=== PATIENT | female | born 1970 | race Caucasian/White ===

== ENCOUNTER → 2016-12-16 | Outpatient (CLI) | payer BC, OTHER ==
[~2016-12-16] MED LIST: ACHD5005 PO; AMLO5TAB2 PO; CLAR500T3 PO; CYCL10TA45 GT; DCS100C PO; FERR-57 PO; FURO80TA PO; HYDR-34 PO; IBP800T PO; LOSA100T7 PO; LVT.1T PO; NAPR-243 PO; NFNEB10T PO; POTA20TA7 PO; TRIA1TAB5 PO; TRM50T PO
--- NOTE | 2016-12-16 19:11 | Diagnostic Imaging Report ---
INDICATION: Renal insufficiency. Bilateral renal sonography performed in the routine fashion. FINDINGS: The right kidney measured 10.2 x 5.4 x 5.0 cm. The left measured 9.4 x 5.1 x 4.5 cm. Bladder could not be evaluated since it is nearly empty. IMPRESSION: Unremarkable bilateral renal sonography. Dictated by: Dictated on workstation # [id number]
== END ==
LOC: RAD 15:52
PROVIDERS: ATTEND Family Medicine
DX: N28.9 Disorder of kidney and ureter, unspecified (principal)
CPT/HCPCS: 76770

== ENCOUNTER → 2017-02-04 | Outpatient (CLI) | payer BC ==
--- NOTE | 2017-02-04 16:05 | Diagnostic Imaging Report ---
INDICATION: Low back pain. COMPARISON: None. FINDINGS: Three views of the lumbar spine are obtained. There is moderate dextroscoliosis of the lumbar spine. Alignment otherwise appears unremarkable. Vertebral body heights appear maintained without evidence of fracture or osseous destructive process. The pedicles appear intact. There is fairly severe degenerative disc disease and moderate lumbar spondylosis in the lower thoracic spine as well as T12/L1, L1/L2 and L2/L3. There are more moderate but similar changes at L4/L5 and L5/S1. There is relative sparing of the disc space at L4/L5. The sacroiliac joints appear unremarkable. IMPRESSION: Dextroscoliosis of lumbar spine with diffuse degenerative disc disease and lumbar spondylosis as described. Findings are most severe at the apex of the scoliosis. No acute fracture or osseous destructive process is suspected. Dictated by: Dictated on workstation # [id number]
== END ==
LOC: RAD 14:57
PROVIDERS: ATTEND Family Medicine
DX: M41.26 Other idiopathic scoliosis, lumbar region (principal); M51.36 Other intervertebral disc degeneration, lumbar region
CPT/HCPCS: 72100

== ENCOUNTER → 2018-11-22 | Outpatient (CLI) | payer BC ==
--- NOTE | 2018-11-22 19:35 | Diagnostic Imaging Report ---
INDICATION: Routine screening. COMPARISON: Prior mammogram from 08/02/2012. EXAMINATION: 2D and 3D bilateral screening mammography was performed with CAD. The current study was also evaluated with a Computer Aided Detection (CAD) system. FINDINGS: Scattered fibroglandular densities are identified, bilaterally. There is an elongated tubular density in the lateral portion of the left breast mid depth on the CC view. No corresponding density on the MLO view is identified. Additional views are recommended. The right breast is unremarkable. Axillae are unremarkable. There are benign calcifications present. IMPRESSION: Left breast density. Additional views are recommended for further evaluation. ACR BI-RADS Category 0: Incomplete. (Needs additional imaging evaluation). Result letter will be mailed to the patient. Note: At least 10% of breast cancer is not imaged by mammography. Dictated by: Dictated on workstation # [id number]
== END ==
LOC: RAD 14:32
PROVIDERS: ATTEND Obstetrics & Gynecology
DX: Z12.31 Encounter for screening mammogram for malignant neoplasm of breast (principal)
CPT/HCPCS: 77067

== ENCOUNTER → 2018-11-30 | Outpatient (CLI) | payer BC ==
--- NOTE | 2018-11-30 22:51 | Diagnostic Imaging Report ---
INDICATION: Left breast density. Patient presents for additional views. Correlation is made with recent screening study from 11/22/2018. Unilateral left 2-D and 3-D diagnostic mammography was performed. Views included spot compression and rolled CC views and 90-degree lateral views. The current study was also evaluated with a Computer Aided Detection (CAD) system. 3-D tomosynthesis was also performed and reviewed. FINDINGS: Additional views show a persistent slightly elongated density in the lateral portion of the left breast. This again is not well seen on the lateral views, could represent fibroglandular tissue. No suspicious calcifications are seen. IMPRESSION: Persistent somewhat elongated density in the lateral left breast, best seen at mid depth on the CC view. This could represent fibroglandular tissue but if further evaluation with ultrasound is recommended, it will be performed today. ACR BI-RADS Category 0: Incomplete. (Needs additional imaging evaluation). Result letter will be mailed to the patient. Note: At least 10% of breast cancer is not imaged by mammography. Dictated by: Dictated on workstation # [id number]
--- NOTE | 2018-11-30 23:34 | Diagnostic Imaging Report ---
INDICATION: Left breast density. Correlation is made with diagnostic mammogram earlier same day. Interrogation the outer left breast was performed. At the 2:30 location approximately 8 cm from the nipple there is a somewhat elongated hypoechoic nodule measuring 11 mm x 4 mm x 6 mm. This likely accounts for the mammographic density. This is fairly well-circumscribed and has benign features. No internal vascularity is present. No other abnormalities are identified. IMPRESSION: Elongated hypoechoic nodule 2:30 location left breast 8 cm from the nipple, likely accounting for the mammographic density. This has fairly benign features. Even so, followup left mammogram and left breast ultrasound in 6 months is recommended to show continued stability. ACR BI-RADS Category 3: Probably benign findings. Result letter will be mailed to the patient. Note: At least 10% of breast cancer is not imaged by mammography. Dictated by: Dictated on workstation # [id number]
== END ==
LOC: RAD 13:53
PROVIDERS: ATTEND Obstetrics & Gynecology
DX: N63.20 Unspecified lump in the left breast, unspecified quadrant (principal)
CPT/HCPCS: 76642

== ENCOUNTER → 2019-02-23 | Outpatient (CLI) | payer BC | LOC: CARD 13:39 | PROVIDERS: ATTEND Family Medicine | DX: I51.7 Cardiomegaly (principal); I10 Essential (primary) hypertension; R01.1 Cardiac murmur, unspecified | CPT/HCPCS: 93306 ==

== ENCOUNTER 2019-03-16 20:45 | Outpatient (CLI) | payer BC | END 2019-03-17 05:46 | disposition home or self-care (01) | LOC: SLEEP 20:45 | PROVIDERS: ATTEND Family Medicine | DX: G47.33 Obstructive sleep apnea (adult) (pediatric) (principal); G47.10 Hypersomnia, unspecified; I10 Essential (primary) hypertension; F41.8 Other specified anxiety disorders; E03.9 Hypothyroidism, unspecified | CPT/HCPCS: 95811 ==

== ENCOUNTER 2019-04-30 13:52 | Emergency (ER) | payer BC ==
[~2019-04-30] VITALS: Ht 154 cm; Wt 136.0 kg
--- NOTE | 2019-04-30 15:06 | ED Back Pain ---
General Chief Complaint: Back Problems Stated Complaint: UPPER BACK PAIN Nursing Triage Note: Pt ambulates to triage with c/o back pain between the shoulder blades x 5 days. Pt has Hx of sciatic pain and osteoathritis but states this pain is different and more severe. Pt reports taking a prescribed muscle relaxer without any relief. Pt denies any episode of severe strain on that area in the past week. Nursing Sepsis Screen: No Definite Risk (ABDOUL ESTEVES MEDICAL STUDENT) Source of Information: Patient Exam Limitations: No Limitations (CRISTINE LUQUE) History of Present Illness Initial Comments Ms. Emmanuel is a 49 year-old female presenting to the ED via private vehicle for upper back pain. HPI: Patient states that she has had upper back pain between her shoulder blades for the last 5 days. The pain occasionally radiates bilaterally up her neck, but otherwise stays between the shoulder blades. She rates the pain as 8/10 in severity at it's max, currently 6/10. She finds that moving her arms exacerbates the pain but otherwise can identify no alleviating or aggravating factors. She denies any changes to her daily routine, specifically any recent lifting, straining, etc. She has a history of sciatica, but has never experienced upper back pain like this before. PMH: Sciatica, Osteoarthritis, Hypertension, Hypothyroidism, Lymphedema (ABDOUL ESTEVES MEDICAL STUDENT) Associated Symptoms: muscle spasms (CRISTINE LUQUE) Allergies and Home Medications Allergies Coded Allergies: No Known Drug Allergies (Unverified , 03/12/11) Home Medications Amlodipine Besylate 5 Mg Tablet, 5 MG PO DAILY, (Reported) Furosemide 80 Mg Tablet, 80 MG PO DAILY, (Reported) Hydrocodone Bit/Acetaminophen 1 Ea Tablet, 1-2 EA PO Q 4 - 6 HR PRN PRN for P NEW PRESCRIPTION CALLED IN TO [facility] Prescribed by: TILA AGOSTO on 06/13/13 1206 Ibuprofen 800 Mg Tab, 800 MG PO TID, (Reported) Levothyroxine Sodium 100 Mcg Tab, 100 MCG PO DAILY, (Reported) Losartan Potassium 100 Mg Tablet, 100 MG PO DAILY, (Reported) Nebivolol Hcl 10 Mg Tablet, 10 MG PO DAILY, (Reported) Potassium Chloride 20 Meq Tab.prt.sr, 40 MEQ PO TID, (Reported) Patient Home Medication List Home Medication List Reviewed: Yes (CRISTINE LUQUE) Review of Systems Constitutional: no symptoms reported EENTM: no symptoms reported, throat pain Respiratory: no symptoms reported Cardiovascular: edema Gastrointestinal: no symptoms reported Genitourinary: no symptoms reported Musculoskeletal: back pain, muscle pain Skin: no symptoms reported Psychiatric/Neurological: Depressed (Currently taking Buproprion. States that she is often tearful but she considers this stable ) (ABDOUL ESTEVES MEDICAL STUDENT) Past Juyandv-Khlldr-Npafgi Hx Patient Social History Alcohol Use: Denies Use Recreational Drug Use: No Smoking Status: Never a Smoker 2nd Hand Smoke Exposure: No Recent Foreign Travel: No Contact w/Someone Who Travel: No Recent Infectious Disease Expo: No Recent Hopitalizations: No Physical Abuse: No Sexual Abuse: No Mistreated: No Fear: No (ABDOUL ESTEVES MEDICAL STUDENT) Immunizations Up To Date Tetanus Booster (TDap): Unknown (ABDOUL ESTEVES MEDICAL STUDENT) Seasonal Allergies Seasonal Allergies: No (ABDOUL ESTEVES MEDICAL STUDENT) Past Medical History Surgeries: Yes Section, Hysterectomy, Orthopedic, Tubal Ligation Respiratory: Yes Sleep Apnea Cardiac: Yes Hypertension Neurological: No 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 oz. [id number]; 57.00 BMI Method:Stated General Appearance: Mild Distress HEENT: Normal ENT Inspection, Pharynx Normal Neck: Normal Inspection Cardiovascular: Regular Rate, Rhythm, No JVD, No Murmur Respiratory: Lungs Clear, Normal Breath Sounds Back: Other (Muscle tenderness bilaterally near T5. No vertebral tenderness. Dorsocervical fat pad present) Extremity: Normal Capillary Refill, Swelling Neurologic/Psychiatric: Alert, Oriented x3, Other (Tearful on exam) Skin: Normal Color, Warm/Dry (ABDOUL ESTEVES MEDICAL STUDENT) Progress/Results/Core Measures Results/Orders My Orders Orders - CRISTINE LUQUE Ketorolac Injection (Toradol Injection) (04/30/19 15:15) Orphenadrine Injection (Norflex Injectio (04/30/19 15:15) (CRISTINE LUQUE) Medications Given in ED Current Medications Medications Dose Ordered Sig/Suraj Route Start Time Stop Time Status Last Admin Dose Admin Ketorolac Tromethamine 60 mg ONCE ONCE IM 04/30/19 15:15 04/30/19 15:16 DC 04/30/19 15:07 60 MG Orphenadrine Citrate 60 mg ONCE ONCE IM 04/30/19 15:15 04/30/19 15:16 DC 04/30/19 15:08 60 MG (CRISTINE LUQUE) Vital Signs/I&O 04/30/19 14:06 Temp 37.1 Pulse 75 Resp 20 B/P (MAP) 183/117 (139) Pulse Ox 98 O2 Delivery Room Air (CRISTINE LUQUE) Blood Pressure Mean: 139 Progress Progress Note : Time: 16:09 Progress Note Patient's pain has resolved after medication administration. She will follow-up with Dr. SAMUEL regarding her hypertension. She has an appointment this . She agrees with plan of care, plans for discharge, return precautions were given. (CRISTINE LUQUE) Departure Impression Primary Impression: BACK STRAIN Disposition: 01 HOME, SELF-CARE Condition: Stable/Unchanged Departure-Patient Inst. Decision time for Depature: 16:10 (CRISTINE LUQUE) Referrals: ANÍBAL SAMUEL DO (PCP/Family) Primary Care Physician Patient Instructions: Upper Back Pain (DC) Add. Discharge Instructions: Take medications as directed. Follow-up with your primary care provider within 1 week for recheck. Return back to the emergency room for worsening symptoms or concerns as needed. All discharge instructions reviewed with patient and/or family. Voiced understanding. Scripts Cyclobenzaprine HCl (Cyclobenzaprine HCl) 10 Mg Tablet 10 MG PO Q8H PRN for SPASMS, #15 TAB 0 Refills Prov: CRISTINE LUQUE 04/30/19 ABDOUL ESTEVES MEDICAL STUDENT Apr 30, 2019 15:06 CRISTINE LUQUE Apr 30, 2019 16:10
[2019-04-30] MEDS ORDERED: ORPHENADRINE 60 MG/2 ML (NORFLEX) AMP IM ONE (15:15)
[2019-04-30] MEDS ORDERED: KETOROLAC 60 MG/2 ML VIAL IM ONE (15:15)
[2019-04-30] MEDS ORDERED: CYCL10TA9 PO (16:10)
[2019-04-30 16:16] VITALS: BP 131/89
== END 2019-04-30 16:16 | disposition home or self-care (01) ==
LOC: EDUNIT# 13:52 → ER 13:53
DX: S39.012A Strain of muscle, fascia and tendon of lower back, initial encounter (principal); I10 Essential (primary) hypertension; E03.9 Hypothyroidism, unspecified; Z90.710 Acquired absence of both cervix and uterus; Z98.51 Tubal ligation status; X58.XXXA Exposure to other specified factors, initial encounter
CPT/HCPCS: 96372; 99284

== ENCOUNTER 2019-12-14 13:14 | Observation (INO) | payer BC ==
[2019-12-14] VITALS (10 sets, daily range): BP systolic 119–165; BP diastolic 61–93
[~2019-12-14] VITALS: Ht 154.9 cm; Wt 137.4 kg
[~2019-12-14 13:14] MED LIST changes: +CYCL10TA9 PO; +diphenhydrAMINE 50 MG/ML INJ (BENADRYL) ONE; +methylPREDNISolone 125 MG (Solu-MEDROL) VIAL ONE
--- NOTE | 2019-12-14 13:14 | NUR ---
Pt arrived to ER via private vehicle, in wheelchair et back to ED3. Pt states she feels like she is having an allergic reaction and is itching all over et her "tongue feels funny". Met in room by Job Haji APRN. Pt to bed. Pt A&O. SL placewd to Lt AC 1315 - Pt given 50mg benadryl IVP, 20 famotidine IVP, et 125mg solumedrol IVP. 1L LR hung 1318 - 0.3mL epi given IM to Lt deltoid 1320 - Pt began vomiting, 8mg zofran IVP given. Pt sitting up at bedside, becoming anxious. Dr. Jacobo to room. 1330 - 20G SL placed to Rt hand. 2nd bag LR given. Pt audibly wheezing, diaphoretic et mumbling 1331 - 0.3mL epi given to rt deltoid IM 1333 - albuerol neb given 1336 - racemic epi given 1342 - 2nd bag of LR started. Levo gtt started at 0.1mcg/kg/min started Job Haji APRN et Dr. Jacobo at bedside for the entirity of this note
[2019-12-14] MEDS ORDERED: FAMOTIDINE 20MG/2ML IV (PEPCID) ONE (13:16)
[2019-12-14] MEDS ORDERED: EPINEPHrine INJECTION 1 MG/ML AMP ONE (13:19)
[2019-12-14] MEDS ORDERED: ONDANSETRON 4 MG/2 ML (SDV) Z0FRAN ONE (13:19)
[2019-12-14] MEDS ORDERED: RT-ALBUTEROL SULF 2.5 MG/3 ML PRE-MIX VIAL ONE (13:28)
[2019-12-14] MEDS ORDERED: LACTATED RINGERS 1,000 ML IV ONE ×2 (13:30→13:45)
[2019-12-14] MEDS ORDERED: RT-epiNEPHrine (RACEMIC) 2.25% 0.5 ML VIAL ONE (13:34)
[2019-12-14] MEDS ORDERED: RT-SODIUM CHL INHALATION 3 ML VIAL ONE (13:34)
[2019-12-14] MEDS ORDERED: NOREPINEPHRINE 4 MG/250 ML 250 ML IV ONE (13:38)
[2019-12-14] MEDS: NOREPINEPHRINE 4 MG/250 ML 250 ML IV SCH ×2 (13:42→20:06)
[2019-12-14] MEDS ORDERED: EPINEPHrine INJECTION 1 MG/ML AMP IM ONE (14:00)
[2019-12-14] MEDS ORDERED: LACTATED RINGERS 1,000 ML IV SCH ×2 (14:00)
[2019-12-14] MEDS ORDERED: RT-ALBUTEROL SULF 2.5 MG/3 ML PRE-MIX VIAL INH ONE (14:00)
[2019-12-14] MEDS ORDERED: ONDANSETRON 4 MG/2 ML (SDV) Z0FRAN IVP ONE (14:00)
[2019-12-14] MEDS ORDERED: EPINEPHrine INJECTION 1 MG/ML AMP IM PRN ×2 (14:00→16:30)
[2019-12-14] MEDS ORDERED: NOREPINEPHRINE 4 MG/250 ML 250 ML IV SCH (14:00)
[2019-12-14] MEDS ORDERED: methylPREDNISolone 125 MG (Solu-MEDROL) VIAL IVP ONE (14:00)
[2019-12-14] MEDS ORDERED: RT-epiNEPHrine (RACEMIC) 2.25% 0.5 ML VIAL INH ONE (14:00)
[2019-12-14] MEDS ORDERED: FAMOTIDINE 20MG/2ML IV (PEPCID) IVP ONE (14:00)
--- NOTE | 2019-12-14 14:05 | ED General ---
General Chief Complaint: Allergic Reaction Stated Complaint: ALLERGIC REACTION Source of Information: Patient Exam Limitations: No Limitations History of Present Illness Date Seen by Provider: Dec 14, 2019 Time Seen by Provider: 14:01 Initial Comments To ER by private vehicle from home with reports of allergic reaction. This started about 15 minutes ago while she was sitting in a chair reading a book. She noticed some swelling to her tongue difficulty breathing and itching to her face and arms as well as hives. No history of this. No known allergies. She did take a leftover prednisone this morning thinking it might help for her knee pain that she's been having. She has had prednisone before without adverse reaction. Timing/Duration: 1/2 Hour Severity: Moderate Allergies and Home Medications Allergies Coded Allergies: No Known Drug Allergies (Unverified , 03/12/11) Home Medications Amlodipine Besylate 5 Mg Tablet, 5 MG PO DAILY, (Reported) Cyclobenzaprine HCl 10 Mg Tablet, 10 MG PO Q8H PRN for SPASMS Prescribed by: CRISTINE LUQUE on 04/30/19 1610 Furosemide 80 Mg Tablet, 80 MG PO DAILY, (Reported) Hydrocodone Bit/Acetaminophen 1 Ea Tablet, 1-2 EA PO Q 4 - 6 HR PRN PRN for P NEW PRESCRIPTION CALLED IN TO [facility] Prescribed by: TILA AGOSTO on 06/13/13 1206 Ibuprofen 800 Mg Tab, 800 MG PO TID, (Reported) Levothyroxine Sodium 100 Mcg Tab, 100 MCG PO DAILY, (Reported) Losartan Potassium 100 Mg Tablet, 100 MG PO DAILY, (Reported) Nebivolol Hcl 10 Mg Tablet, 10 MG PO DAILY, (Reported) Potassium Chloride 20 Meq Tab.prt.sr, 40 MEQ PO TID, (Reported) Patient Home Medication List Home Medication List Reviewed: Yes Review of Systems Review of Systems Constitutional: see HPI EENTM: see HPI Respiratory: no symptoms reported Cardiovascular: no symptoms reported Genitourinary: no symptoms reported Musculoskeletal: no symptoms reported Skin: see HPI Psychiatric/Neurological: No Symptoms Reported Hematologic/Lymphatic: No Symptoms Reported Past Zbdvdrq-Kbxuvs-Opwroc Hx Patient Social History 2nd Hand Smoke Exposure: No Recent Hopitalizations: No Immunizations Up To Date Tetanus Booster (TDap): Unknown Seasonal Allergies Seasonal Allergies: No Past Medical History Surgeries: Yes Section, Hysterectomy, Orthopedic, Tubal Ligation Respiratory: Yes Sleep Apnea Cardiac: Yes Hypertension Neurological: No Reproductive Disorders: 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 oz. [id number]; 57.00 BMI Method:Stated General Appearance: Moderate Distress Eyes: Bilateral Eye Normal Inspection, Bilateral Eye PERRL, Bilateral Eye EOMI Respiratory: No Accessory Muscle Use, No Respiratory Distress Cardiovascular: Regular Rate, Rhythm, Normal Peripheral Pulses Gastrointestinal: Normal Bowel Sounds, Non Tender, Soft Extremity: Normal Inspection Neurologic/Psychiatric: Alert Skin: Normal Color, Warm/Dry Progress/Results/Core Measures Suspected Sepsis SIRS Temperature: Pulse: Respiratory Rate: Blood Pressure / Mean: Results/Orders My Orders Orders - GERSON RABAGO APRN Cbc With Automated Diff (12/14/19 13:56) Comprehensive Metabolic Panel (12/14/19 13:56) Ed Iv/Invasive Line Start (12/14/19 13:56) Epinephrine 1 Mg Injection (Adrenalin I (12/14/19 14:00) Epinephrine 1 Mg Injection (Adrenalin I (12/14/19 14:00) Rt Epinephrine (Racemic Epinephrine 2.25 (12/14/19 14:00) Svn Small Volume Nebulizer (12/14/19 13:56) Famotidine Injection (Pepcid Injection) (12/14/19 14:00) Methylprednisolone Sod Succ (Solu-Medrol (12/14/19 14:00) Lactated Ringers (Lr 1000 Ml Iv Solution (12/14/19 14:00) Lactated Ringers (Lr 1000 Ml Iv Solution (12/14/19 14:00) Norepinephrine 4 Mg/250 Ml (Norepinephri (12/14/19 14:00) Ondansetron Injection (Zofran Injectio (12/14/19 14:00) Albuterol Pre-Mix Nebs (Rt) (Proventil (12/14/19 14:00) Svn Small Volume Nebulizer (12/14/19 13:56) Vital Signs/I&O 12/14/19 13:14 Temp 36.5 Pulse 111 Resp 30 B/P (MAP) 165/93 (117) Pulse Ox 92 O2 Delivery Room Air Capillary Refill : Departure Communication (Admissions) Time/Spoke to Admitting Phy: 14:[address] Parmar on-call for Dr. SAMUEL, we'll admit. 1402-on arrival her mentation was normal she did have warm dry skin with some erythema and swelling of her palms and face and neck. She had a little bit of tongue edema as well as some edema of her ears. She was given 20 mg of IV Pepcid, 50 mg of IV Benadryl and 120 mg of IV Solu-Medrol. About 5 minutes later, despite these interventions, she got worse with worsening dyspnea. Wheezing, stridor, she became diaphoretic and mentation slowed. Blood pressure was rechecked and found to be in the upper 60s and low 70s systolic on 3 consecutive readings. This was consistent with clinical exam. Capillary refill is delayed. She was given racemic epinephrine and albuterol. She was given intramuscular epinephrine 0.3 mg by me in each deltoid 5 minutes apart. Despite that blood pressure remained in the 70s, levophed was started at 0.1 mics per kilo per minute through a large antecubital vein in the left. She was given 2 L of lactated Ringer's. She had slow improvement of blood pressure up to a current pressure of 111/68 without tachycardia heart rate of 80, respiratory rate declined to 18 and oxygen 93% on 3 L. Impression Primary Impression: Anaphylactic shock Disposition: ADMITTED INPATIENT Condition: Improved Admissions Decision to Admit Reason: Admit from ER (General) Decision to Admit/Date: Dec 14, 2019 Time/Decision to Admit Time: 14:05 Departure-Patient Inst. Referrals: ANÍBAL SAMUEL DO (PCP/Family) Primary Care Physician Copy Copies To 1: ANÍBAL SAMUEL PETER J APRN Dec 14, 2019 14:05
--- NOTE | 2019-12-14 14:15 | NUR ---
Called pt contact, walter Baldwin updated on pt status et plan to stay admit ot ICU.
[2019-12-14] MEDS ORDERED: ONDANSETRON 4 MG/2 ML (SDV) Z0FRAN IV PRN (15:00)
[2019-12-14] MEDS ORDERED: RT-ALBUTEROL SULF 2.5 MG/3 ML PRE-MIX VIAL INH PRN (15:00)
[2019-12-14] MEDS ORDERED: CATHETER FLUSH 10 ML SYR IV PRN (15:15)
--- NOTE | 2019-12-14 15:15 | Diagnostic Imaging Report ---
INDICATION: Anaphylaxis, Hypoxia COMPARISON: 04/24/2013. EXAMINATION: Single frontal view of the chest. FINDINGS: Stable heart size and pulmonary vascularity. The lungs are well aerated and clear. No large pleural effusion or pneumothorax is seen. The visualized osseous structures show no acute abnormality. IMPRESSION: No acute cardiopulmonary process. Dictated by: Dictated on workstation # [id number]
[2019-12-14 15:56] LABS: BASOPHILS # (AUTO) 0.1 10^3/uL (0.0-0.1); BASOPHILS % (AUTO) 0 % (0-10); EOSINOPHILS % (AUTO) 0 % (0-10); HEMATOCRIT 50 % (35-52); HEMOGLOBIN 16.6 G/DL (11.5-16.0); LYMPHOCYTES # (AUTO) 1.4 X 10^3 (1.0-4.0); LYMPHOCYTES % (AUTO) 4 % (12-44); MEAN CORPUSCULAR HEMOGLOBIN 29 PG (25-34); MEAN CORPUSCULAR HGB CONC 33 G/DL (32-36); MEAN CORPUSCULAR VOLUME 88 FL (80-99); MEAN PLATELET VOLUME 9.8 FL (7.4-10.4); MONOCYTES # (AUTO) 1.3 X 10^3 (0.0-1.0); MONOCYTES % (AUTO) 4 % (0-12); NEUTROPHILS # (AUTO) 30.8 X 10^3 (1.8-7.8); NEUTROPHILS % (AUTO) 92 % (42-75); PLATELET COUNT 374 10^3/uL (130-400)
[2019-12-14] MEDS: LACTATED RINGERS 1,000 ML IV SCH ×2 (15:56→22:57)
[2019-12-14 15:57] LABS: WHITE BLOOD COUNT 33.6 10^3/uL (4.3-11.0)
[2019-12-14 16:01] LABS: ALBUMIN 3.2 GM/DL (3.2-4.5); POTASSIUM 3.1 MMOL/L (3.6-5.0)
[2019-12-14 16:02] LABS: CALCIUM 8.6 MG/DL (8.5-10.1)
[2019-12-14 16:04] LABS: TOTAL PROTEIN 6.6 GM/DL (6.4-8.2)
[2019-12-14 16:05] LABS: BILIRUBIN,TOTAL 0.5 MG/DL (0.1-1.0)
[2019-12-14 16:07] LABS: CREATININE SERUM 0.99 MG/DL (0.60-1.30)
[2019-12-14] MEDS: inSUlin ASPART (NovoLOG) 1 UNIT/0.01 ML (CHARGE PER UNIT) SC SCH ×3 (16:25→21:17)
[2019-12-14 16:45] LABS: BAND NEUTROPHILS 3 %; LYMPHOCYTES % (MANUAL) 6 %; MONOCYTES % (MANUAL) 2 %; NEUTROPHILS % (MANUAL) 89 %; RBC MORPH NORMAL
[2019-12-14] MEDS: diphenhydrAMINE 50 MG/ML INJ (BENADRYL) IV SCH ×2 (18:37→22:57)
--- NOTE | 2019-12-14 20:32 | History & Physical-Hospitalist ---
History of Present Illness HPI/Chief Complaint Pt is a 49yoCF with a PMH of HTN and hypothyroidism who presented to the ER due to throat swelling. She reported had some knee pain and took what she thought was a left over prednisone thinking it would help. Shortly after she noted that her tongue was swelling and she had difficulty breathing and developed hives and itching. In the ER she had significant ear and tongue swelling as well. She was given solumedrol, benadryl, pepcid and multiple doses of IM. Despite this her blood pressure dropped and she was started on levophed gtt. She started to respond to this. Anesthesia was called for intubation but by the time they arrived she was improving and intubation was not deemed necessary. Source: patient, RN/MD Date Seen 12/14/19 Time Seen by a Provider: 20:31 Attending Physician Erin Harrington MD PCP Aníbal Meyers DO Referring Physician Date of Admission Dec 14, 2019 at 14:19 Home Medications & Allergies Home Medications Reviewed patient Home Medication Reconciliation performed by pharmacy medication reconciliations weatherization technician and/or nursing. Patients Allergies have been reviewed. Allergies Allergies Coded Allergies No Known Drug Allergies (Peaqpstyst17/2/11) Past Gzrjxzd-Kvkibm-Zdcsrj Hx Past Med/Social Hx: Reviewed Nursing Past Med/Soc Hx Patient Social History Alcohol Use: Denies Use Recreational Drug Use: No Smoking Status: Never a Smoker 2nd Hand Smoke Exposure: No Recent Foreign Travel: No Contact w/other who traveled: No Recent Hopitalizations: No Recent Infectious Disease Expo: No Immunizations Up To Date Tetanus Booster (TDap): Unknown Pediatric: No Seasonal Allergies Seasonal Allergies: No Past Medical History Surgeries: Section, Hysterectomy, Orthopedic, Tubal Ligation Currently Using CPAP: No Currently Using BIPAP: No Cardiac: Hypertension Reproductive: No Hysterectomy, Tubal Ligation Musculoskeletal: Arthritis Endocrine: Hypothyroidsim History of Blood Disorders: No Family History Reviewed Nursing Family Hx No Pertinent Family Hx Review of Systems Constitutional: No fever EENTM: mouth swelling, throat swelling, other (ear and tongue swelling) Respiratory: see HPI, short of breath Cardiovascular: palpitations Genitourinary: no symptoms reported Musculoskeletal: joint pain (knee pain) Skin: see HPI, pruritus, rash Physical Exam Physical Exam Vital Signs Vital Signs - First Documented 12/14/19 12/14/19 13:14 15:29 Temp 36.5 Pulse 111 Resp 30 B/P (MAP) 165/93 (117) Pulse Ox 92 O2 Delivery Room Air FiO2 21 Capillary Refill : Less Than 3 Seconds Height, Weight, BMI Height: 5'3.00" Weight: 345lbs. oz. 156.381511ge; 55.00 BMI Method:Stated General Appearance: No Apparent Distress, Obese HEENT: PERRL/EOMI, Moist Mucous Membranes; No Scleral Icterus (L), No Scleral Icterus (R) Neck: Normal Inspection, Supple Respiratory: Lungs Clear, No Accessory Muscle Use, No Respiratory Distress Cardiovascular: Regular Rate, Rhythm, No Murmur Gastrointestinal: Normal Bowel Sounds, Non Tender, Soft Extremity: Normal Capillary Refill, Non Tender Neurologic/Psychiatric: Alert, Oriented x3, Normal Mood/Affect Skin: Normal Color, Warm/Dry Results Results/Procedures Labs Laboratory Tests 12/14/19 15:45 12/15/19 04:45 Patient resulted labs reviewed. Imaging: Reviewed Imaging Report Imaging [facility], [place], [place] NAME: [facility] REC#: [id number] PT STATUS: ADM Dom : 1970 PHYSICIAN: SHAQ TALAMANTES MD ADMIT DATE: 12/14/19/ICU Draft Date of Exam:12/14/19 CHEST 1 VIEW, AP/PA ONLY INDICATION: Anaphylaxis, Hypoxia COMPARISON: 04/24/2013. EXAMINATION: Single frontal view of the chest. FINDINGS: Stable heart size and pulmonary vascularity. The lungs are well aerated and clear. No large pleural effusion or pneumothorax is seen. The visualized osseous structures show no acute abnormality. IMPRESSION: No acute cardiopulmonary process. Dictated on workstation # [id number] Dict: 12/14/19 1513 Trans: 12/14/19 1515 [facility] [id number] Interpreted by: TAWNY CHOUDHARY MD Electronically signed by: Assessment/Plan Admission Diagnosis Anaphylactic shock Admission Status: Observation Assessment and Plan Anaphylactic Shock Continue steroids, benadryl, and pepcid Levophed on standby currently Workup ordered by eICU for etiology of anaphylaxis Discussed need for epi pen with patient, she is unsure if she can afford it- will look in to options for 340b coverage or coupons Leukocytosis Unsure of cause, maybe reactive Trend No evidence of infection Not sepsis HTN Hold home meds due to hypotension Hyperglycemia SSI added Does not have a known history of DM Anticipate worsening of blood sugars with steroids use DVT ppx: lovenox Diagnosis/Problems Diagnosis/Problems (1) Anaphylactic shock Status: Acute (2) Hypothyroidism Status: Chronic Qualifiers: Hypothyroidism type: unspecified Qualified Codes: E03.9 - Hypothyroidism, unspecified (3) Essential (primary) hypertension Status: Chronic (4) Leukocytosis Status: Acute Qualifiers: Leukocytosis type: unspecified Qualified Codes: D72.829 - Elevated white blood cell count, unspecified (5) Hyperglycemia Status: Acute (6) Depression Status: Chronic Qualifiers: Depression Type: unspecified Qualified Codes: F32.9 - Major depressive disorder, single episode, unspecified Clinical Quality Measures DVT/VTE Risk/Contraindication: Risk Factor Score Per Nursin RFS Level Per Nursing on Admit: 4+=Very High Copy Copies To 1: ANÍBAL MEYERS KATELYN M MD Dec 14, 2019 20:32
[2019-12-14] MEDS ORDERED: ENOXAPARIN 40 MG/0.4 ML (LOVENOX) SYR SQ SCH (21:00)
[2019-12-14] MEDS ORDERED: ACETAMINOPHEN 325 MG TABLET PO PRN (21:00)
[2019-12-14] MEDS ORDERED: PATIENT MAY USE OWN MEDS, ALL MC SCH (21:00)
[2019-12-14] MEDS ORDERED: ENOXAPARIN 40 MG/0.4 ML (LOVENOX) SYR ONE (21:16)
[2019-12-14] MEDS: FAMOTIDINE 20MG/2ML IV (PEPCID) IV SCH (21:23)
[2019-12-14] MEDS: methylPREDNISolone 40 MG/ML (Solu-MEDROL) VIAL IV SCH (21:23)
[2019-12-14] MEDS: buPROPion SR 150 MG (WELLBUTRIN SR) TAB PO SCH (21:23)
[2019-12-14] MEDS: RT-ALBUTEROL SULF 2.5 MG/3 ML PRE-MIX VIAL INH SCH (21:36)
[2019-12-15] VITALS (11 sets, daily range): BP systolic 133–174; BP diastolic 63–107
[2019-12-15] MEDS: NOREPINEPHRINE 4 MG/250 ML 250 ML IV SCH ×2 (01:40→05:29)
[2019-12-15] MEDS: RT-ALBUTEROL SULF 2.5 MG/3 ML PRE-MIX VIAL INH SCH ×2 (03:01→09:26)
[2019-12-15 04:55] LABS: BASOPHILS % (AUTO) 0 % (0-10); EOSINOPHILS % (AUTO) 0 % (0-10); HEMATOCRIT 38 % (35-52); HEMOGLOBIN 12.8 G/DL (11.5-16.0); LYMPHOCYTES # (AUTO) 0.7 X 10^3 (1.0-4.0); LYMPHOCYTES % (AUTO) 4 % (12-44); MEAN CORPUSCULAR HEMOGLOBIN 30 PG (25-34); MEAN CORPUSCULAR HGB CONC 34 G/DL (32-36); MEAN CORPUSCULAR VOLUME 88 FL (80-99); MONOCYTES # (AUTO) 0.2 X 10^3 (0.0-1.0); MONOCYTES % (AUTO) 1 % (0-12); NEUTROPHILS # (AUTO) 17.4 X 10^3 (1.8-7.8); NEUTROPHILS % (AUTO) 95 % (42-75); PLATELET COUNT 269 10^3/uL (130-400); WHITE BLOOD COUNT 18.3 10^3/uL (4.3-11.0)
[2019-12-15 05:07] LABS: ALBUMIN 3.1 GM/DL (3.2-4.5); CHLORIDE 101 MMOL/L (98-107); POTASSIUM 2.9 MMOL/L (3.6-5.0); SODIUM 137 MMOL/L (135-145)
[2019-12-15 05:08] LABS: CALCIUM 8.3 MG/DL (8.5-10.1)
[2019-12-15 05:09] LABS: GLUCOSE 220 MG/DL (70-105)
[2019-12-15 05:10] LABS: TOTAL PROTEIN 6.2 GM/DL (6.4-8.2)
[2019-12-15 05:11] LABS: BILIRUBIN,TOTAL 0.2 MG/DL (0.1-1.0); CARBON DIOXIDE 25 MMOL/L (21-32)
[2019-12-15 05:13] LABS: ALKALINE PHOSPHATASE 54 U/L (40-136); CREATININE SERUM 0.94 MG/DL (0.60-1.30); GFR ESTIMATED > 60; PHOSPHORUS 3.1 MG/DL (2.3-4.7)
[2019-12-15 05:14] LABS: BUN/CREATININE RATIO 16
[2019-12-15 05:16] LABS: ALANINE AMINOTRANSFERASE 14 U/L (0-55); MAGNESIUM 1.9 MG/DL (1.6-2.4)
[2019-12-15] MEDS: inSUlin ASPART (NovoLOG) 1 UNIT/0.01 ML (CHARGE PER UNIT) SC SCH ×2 (05:30→05:42)
[2019-12-15] MEDS: POTASSIUM CL 10MEQ/50ML IVPB 50 ML IV SCH ×5 (05:42→09:54)
[2019-12-15] MEDS: methylPREDNISolone 40 MG/ML (Solu-MEDROL) VIAL IV SCH (05:42)
[2019-12-15] MEDS: diphenhydrAMINE 50 MG/ML INJ (BENADRYL) IV SCH (05:43)
[2019-12-15] MEDS: LACTATED RINGERS 1,000 ML IV SCH (05:50)
[2019-12-15] MEDS ORDERED: POTASSIUM CL 10MEQ/50ML IVPB 50 ML IV SCH ×2 (06:00)
[2019-12-15] MEDS ORDERED: MAGNESIUM 1 GM/100 ML IVPB 100 ML IV SCH ×2 (06:00)
[2019-12-15] MEDS ORDERED: KCL 20 MEQ TAB (K-DUR) PO SCH ×2 (06:00)
[2019-12-15] MEDS ORDERED: LEVOTHYROXINE 125 MCG (LEVOTHROID) TABLET PO SCH (06:30)
[2019-12-15] MEDS: FAMOTIDINE 20MG/2ML IV (PEPCID) IV SCH (08:09)
[2019-12-15] MEDS: buPROPion SR 150 MG (WELLBUTRIN SR) TAB PO SCH ×2 (08:10→08:12)
[2019-12-15] MEDS ORDERED: ENOXAPARIN 60 MG/0.6 ML (LOVENOX) SYR SC SCH (09:00)
--- NOTE | 2019-12-15 09:00 | Diagnostic Imaging Report ---
EXAMINATION: Chest 1 view HISTORY: Anaphylaxis. COMPARISON: 12/14/2019. FINDINGS: The lung volumes are normal. No focal consolidation is seen. No large pleural effusion or pneumothorax is seen. The cardiomediastinal silhouette is stable in size. No acute osseous abnormality is seen. IMPRESSION: 1. No acute pleuroparenchymal process. Dictated by: Dictated on workstation # [id number]
[2019-12-15] MEDS ORDERED: EPIN0.3P3 IJ (09:23)
--- NOTE | 2019-12-15 09:39 | Discharge Inst-Simple/Standard ---
Discharge Inst-Standard Patient Instructions/Follow Up Plan of Care/Instructions/FU: Please continue to take your medications as written. Please avoid taking anymore prednisone at this time and follow up with Dr Meyers in the next week. Activity as Tolerated: Yes Discharge Diet: No Restrictions Return to The Hospital For: throat swelling, shortness of breath, itching, hives, if you feel you are getting worse. LIONEL STODDARD MD Dec 15, 2019 09:38
[2019-12-15] MEDS ORDERED: fentaNYL INJECTION 100 MCG/2 ML AMP IVP PRN (10:00)
[2019-12-15] MEDS ORDERED: KCL 10 MEQ TAB (MICRO K) PO ONE (10:00)
[2019-12-15] MEDS ORDERED: METH4TAB10 PO (10:31)
--- NOTE | 2019-12-15 10:34 | Discharge Summary ---
Diagnosis/Chief Complaint Date of Admission Dec 14, 2019 at 14:19 Date of Discharge Discharge Date: Dec 15, 2019 Admission Diagnosis Anaphylactic shock Primary Care HomerAníbal gutierrez DO Discharge Diagnosis (1) Anaphylactic shock Status: Acute (2) Hypothyroidism Status: Chronic (3) Essential (primary) hypertension Status: Chronic Discharge Summary Procedures/Consulations TeleICU Discharge Physical Exam Allergies: Coded Allergies: No Known Drug Allergies (Unverified , 03/12/11) Vitals & I&Os Vital Signs Date Time Temp Pulse Resp B/P (MAP) Pulse Ox O2 Delivery O2 Flow Rate FiO2 12/15/19 10:54 35.8 86 14 163/81 (108) Nasal Cannula 3.00 12/15/19 10:00 95 12/14/19 15:29 21 General Appearance: No Apparent Distress, WD/WN Respiratory: Lungs Clear, No Respiratory Distress Cardiovascular: Regular Rate, Rhythm, No Murmur Neurologic/Psychiatric: Alert, Oriented x3 Hospital Course Pt was admitted due to anaphylactic shock after taking an old prednisone pill. She necessitated multiple doses of epinephrine and eventually was start on a Levophed gtt in the ER. she received solu-medrol, pepcid, and benadryl as well. Intubation was considered and anesthesia was called but she improved and was able to protect her airway with medical treatment. She responded well and was discharged in stable and improved condition. She was advised to not taking any more prednisone and instructed on the importance of carrying her EpiPen with her at all times from now on. I called and confirmed that her EpiPen was covered by her insurance ($8 out of pocket cost) and patient confirmed she could afford this. She was discharged home at her request in stable condition to follow up with her primary care doctor next week. Labs (last 24 hrs) Laboratory Tests 12/14/19 20:30: Glucometer 146H 12/15/19 04:45: White Blood Count 18.3H, Red Blood Count 4.33L, Hemoglobin 12.8#, Hematocrit 38, Mean Corpuscular Volume 88, Mean Corpuscular Hemoglobin 30, Mean Corpuscular Hemoglobin Concent 34, Red Cell Distribution Width 14.2, Platelet Count 269, Mean Platelet Volume 10.0, Neutrophils (%) (Auto) 95H, Lymphocytes (%) (Auto) 4L , Monocytes (%) (Auto) 1, Eosinophils (%) (Auto) 0, Basophils (%) (Auto) 0, Neutrophils # (Auto) 17.4H, Lymphocytes # (Auto) 0.7L, Monocytes # (Auto) 0.2, Eosinophils # (Auto) 0.0, Basophils # (Auto) 0.0, Sodium Level 137, Potassium Level 2.9L, Chloride Level 101, Carbon Dioxide Level 25, Anion Gap 11, Blood Urea Nitrogen 15, Creatinine 0.94, Estimat Glomerular Filtration Rate > 60, BUN/Creatinine Ratio 16, Glucose Level 220H, Calcium Level 8.3L, Corrected Calcium 9.0, Phosphorus Level 3.1, Magnesium Level 1.9, Total Bilirubin 0.2, Aspartate Amino Transf (AST/SGOT) 12, Alanine Aminotransferase (ALT/SGPT) 14, Alkaline Phosphatase 54, C-Reactive Protein High Sensitivity 11.42H, Total Protein 6.2L, Albumin 3.1L Microbiology 12/14/19 MRSA Screen - Final, Complete MRSA not isolated Patient resulted labs reviewed. Pending Labs Discussion & Recommendations Discharge Planning: >30 minutes discharge planning Discharge Home Medications: Active Scripts Active Methylprednisolone Dose Pack (Methylprednisolone) 4 Mg Tab.ds.pk 4 Mg PO UD 6 Days PER DOSE PACK INSTRUCTIONS Epipen 2-Portillo (Epinephrine) 0.3 Mg/0.3 Ml Auto.injct 0.3 Mg IJ NEEDED PRN Cyclobenzaprine HCl 10 Mg Tablet 10 Mg PO Q8H PRN Lortab 7.5 Mg Tablet (Acetaminophen/Hydrocodone Bitart) 1 Ea Tablet 1-2 Ea PO Q 4 - 6 HR PRN PRN NEW PRESCRIPTION CALLED IN TO [facility] Reported Lasix Tab (Furosemide) 80 Mg Tablet 80 Mg PO DAILY Losartan Potassium 100 Mg Tablet 100 Mg PO DAILY Bystolic (Nebivolol Hcl) 10 Mg Tablet 10 Mg PO DAILY Levothroid (Levothyroxine Sodium) 100 Mcg Tab 100 Mcg PO DAILY Amlodipine Besylate 5 Mg Tablet 5 Mg PO DAILY Klor-Con M20 (Potassium Chloride) 20 Meq Tab.prt.sr 40 Meq PO TID Motrin (Ibuprofen) 800 Mg Tab 800 Mg PO TID Instructions to patient/family Please see electronic discharge instructions given to patient. Clinical Quality Measures DVT/VTE Risk/Contraindication: Risk Factor Score Per Nursin RFS Level Per Nursing on Admit: 4+=Very High Copy Copies To 1: ANÍBAL SAMUEL DO Problem Qualifiers (1) Hypothyroidism: Hypothyroidism type: unspecified Qualified Codes: E03.9 - Hypothyroidism, unspecified LIONEL STODDARD MD Dec 15, 2019 10:34
--- NOTE | 2019-12-15 12:24 | NUR ---
PT DISCHARGED FROM ICU. ALL IVS TAKEN OUT, DISCHARGE PAPERWORK GIVE TO PT AND SIGNED BY PT AND RN. PT TAKEN TO ER DOOR IN W/C BY STAFF TO PRIVATE VEHICLE AND S.O. DRIVING
== END 2019-12-15 12:24 | disposition home or self-care (01) ==
LOC: EDUNIT# 13:14 → ER 13:17 → ICU 14:19
PROVIDERS: ADMIT Family Medicine; ATTEND Family Medicine
DX: T78.2XXA Anaphylactic shock, unspecified, initial encounter (principal); E03.9 Hypothyroidism, unspecified; I10 Essential (primary) hypertension; G47.30 Sleep apnea, unspecified; M19.90 Unspecified osteoarthritis, unspecified site; D72.829 Elevated white blood cell count, unspecified; E72.51 Non-ketotic hyperglycinemia; F32.9 Major depressive disorder, single episode, unspecified; Z79.51 Long term (current) use of inhaled steroids; Z79.899 Other long term (current) drug therapy; Z90.710 Acquired absence of both cervix and uterus
CPT/HCPCS: 36415; 71045; 80053; 82785; 82962; 83735; 84100; 85007; 85025; 85027; 86141; 87081; 94640; G0378

== ENCOUNTER → 2020-11-10 | Outpatient (CLI) | payer BC ==
[~2020-11-10] MED LIST changes: +EPIN0.3P3 IJ; +METH4TAB10 PO; -diphenhydrAMINE 50 MG/ML INJ (BENADRYL) ONE; -methylPREDNISolone 125 MG (Solu-MEDROL) VIAL ONE
--- NOTE | 2020-11-10 11:20 | Diagnostic Imaging Report ---
INDICATION: Routine screening. COMPARISON: 11/22/2018. TECHNIQUE: 2D and 3D bilateral screening mammography was performed with CAD. FINDINGS: Scattered fibroglandular densities are identified bilaterally. The elongated tubular structure in the outer aspect of the left breast appears stable. There are benign calcifications in the left breast. No new mass or malignant-appearing microcalcifications are seen. The axillae are unremarkable. IMPRESSION: No mammographic features suspicious for malignancy are identified. ACR BI-RADS Category 2: Benign findings. Result letter will be mailed to the patient. Note: At least 10% of breast cancer is not imaged by mammography. Dictated by: Dictated on workstation # [id number]
--- NOTE | 2020-11-10 16:25 | Diagnostic Imaging Report ---
PROCEDURE: US Thyroid. TECHNIQUE: Multiple real-time grayscale images were obtained of the thyroid in various projections. INDICATION: Thyroid nodule Right lobe measures approximately 2 x 4.5 cm. There is a 1.5 cm well-circumscribed hyperechoic nodule present. The left lobe measures 1.5 x 3.2 cm. There is no nodule present on the left. IMPRESSION: The right thyroid nodule is stable compared to prior study from 02/18/2015 and therefore most consistent with a benign lesion. No new abnormality has developed in the interval. There is a 2.4 x 3.8 x 3.6 cm heterogeneous area superior to the right lobe of thyroid with a 2.5 x 3 x 3.7 cm similar-appearing heterogeneous area superior to the left lobe of the thyroid. This is fairly homogeneous and has echotexture similar to thyroid tissue. These do not have the appearance of being typical lymph nodes. IMPRESSION: There are bilateral neck masses superior to the thyroid which I do not believe represents the submandibular glands because of the area imaged. This could be bilateral ectopic thyroid tissue. If these are lymph nodes day have an abnormal appearance. These areas could be evaluated further with thyroid scan or contrasted CT study. Dictated by: Dictated on workstation # [id number]
--- NOTE | 2020-11-10 16:32 | Diagnostic Imaging Report ---
INDICATION: Mass in the right upper back. Sonographic interrogation of a palpable mass in the upper right back was performed. There is an indeterminate area of hypoechogenicity measuring 2.1 x 1.4 x 1.7 cm. No definite vascularity is seen. No cyst or fluid collection is identified. IMPRESSION: Hypoechogenicity at the area of palpable abnormality in the upper right back, indeterminate by ultrasound. CT chest would be recommended for better characterization. Dictated by: Dictated on workstation # [id number]
== END ==
LOC: RAD 09:45
PROVIDERS: ATTEND Family Medicine
DX: Z12.31 Encounter for screening mammogram for malignant neoplasm of breast (principal); E04.1 Nontoxic single thyroid nodule; R59.0 Localized enlarged lymph nodes
CPT/HCPCS: 76536; 76881; 77063; 77067

== ENCOUNTER → 2021-01-16 | Outpatient (CLI) | payer BC ==
[~2021-01-16] MED LIST changes: +CATHETER FLUSH 10 ML SYR IV PRN; +HOLD METFORMIN - RECEIVED CONTRAST 20 ML VIAL IV SCH; +IOHEXOL 350 MG/ML 100 ML (OMNIPAQUE 350) VIAL IV ONE; +NS 100 ML (IVPB) BAG IV ONE
--- NOTE | 2021-01-16 16:31 | Diagnostic Imaging Report ---
PROCEDURE: CT neck soft tissue with contrast. TECHNIQUE: Multiple contiguous axial images were obtained through the neck after the administration of contrast. Auto Exposure Controls were utilized during the CT exam to meet ALARA standards for radiation dose reduction. INDICATION: Mass in the mid back. COMPARISON: None. FINDINGS: The posterior nasopharynx and oropharynx demonstrate appropriate symmetry. There is no displacement of the parapharyngeal fat planes. There is no abnormal process evident within the prevertebral or retropharyngeal space. There is no evidence of abnormal thickening of the epiglottis or aryepiglottic folds. The vocal folds appear symmetric. The parotid, submandibular and thyroid gland are unremarkable. No pathologically enlarged cervical lymph nodes are evident. No focal inflammatory changes are demonstrated. No soft tissue mass or fluid collection demonstrated. The vascular structures the neck demonstrate no evidence of high-grade stenosis on this nondedicated exam. The visualized lung apices are clear. The visualized intracranial contents demonstrate no evidence of pathologic intracranial enhancement or intracranial mass effect. Visualized orbital contents are unremarkable. The visualized paranasal sinuses are clear. The mastoids and middle ears are clear. No acute osseous abnormality in the cervical spine. Impression: 1. Appropriate symmetry of the aerodigestive tract. 2. No evidence of pathologic adenopathy. 3. No soft tissue mass, fluid collection or focal inflammatory changes demonstrated. 4. The mass in the right aspect of the mid back was not included on this exam. The site apparently was marked with a BB which was also not visualized on the exam. This may have been outside of the [id number]. Consider CT of the chest to further evaluate. Dictated by: Dictated on workstation # [id number]
--- NOTE | 2021-01-16 18:47 | Diagnostic Imaging Report ---
PROCEDURE: CT chest with contrast only. TECHNIQUE: Multiple contiguous axial images were obtained through the chest after administration of intravenous contrast. Auto Exposure Controls were utilized during the CT exam to meet ALARA standards for radiation dose reduction. DATE: January 16, 2021. COMPARISON: Chest radiograph April 24, 2013. INDICATION: 51-year-old female, multiple neck masses. FINDINGS: There is no identified pulmonary nodule or lung mass. There is no otherwise noted focal airspace consolidation. There is no pneumothorax. There is no pleural effusion. The central airways are patent. The heart is not enlarged. There is no pericardial effusion. There is no identified abnormally enlarged mediastinal, hilar or axillary lymph node meeting CT size criteria for adenopathy. The imaged portions of the upper abdomen are unremarkable. There are degenerative changes of the spine. There is left greater than right glenohumeral arthritis. There is no identified focal concerning bone lesion or other acute bony abnormality. IMPRESSION: CT chest: 1. No evidence to suggest malignancy at the level of the chest. 2. No acute cardiopulmonary abnormality. Dictated by: Dictated on workstation # [id number]
== END ==
LOC: RAD 15:22
PROVIDERS: ATTEND Family Medicine
DX: R22.2 Localized swelling, mass and lump, trunk (principal); R22.1 Localized swelling, mass and lump, neck
CPT/HCPCS: 70491; 71260

== ENCOUNTER 2021-08-11 16:07 | Observation (INO) | payer BC ==
[~2021-08-11] VITALS: Ht 154.9 cm; Wt 140.7 kg
[~2021-08-11 16:07] MED LIST changes: -ACET-2267 PO; -ALBU18HF2 INH; -AMLO-251 PO; -AZIT250T PO; -BUPR300T98 PO; -CEFD300C3 PO; -DEXA2TAB PO; -GUAI400T86 PO; -HYDR-3924 PO; -IPRA3AMP31 INH; -LACT1CAP7 PO; -LEVO125T6 PO; -MAGN400T50 PO; -NEBI20TA6 PO; -POTA-169 PO; -TELM1TAB36 PO
[2021-08-11] MEDS ORDERED: KCL 20 MEQ TAB (K-DUR) PO NR (17:00)
[2021-08-11] MEDS ORDERED: FUROSEMIDE 40 MG/4 ML INJ (LASIX) IVP NR (17:00)
[2021-08-11] MEDS ORDERED: ENOXAPARIN 40 MG/0.4 ML (LOVENOX) SYR SC SCH (17:00)
[2021-08-11] MEDS ORDERED: diphenhydrAMINE 25 MG TAB (BENADRYL) PO PRN (17:00)
[2021-08-11] MEDS ORDERED: PATIENT MAY USE OWN MEDS, ALL PO SCH (17:00)
[2021-08-11] MEDS ORDERED: ONDANSETRON 4 MG/2 ML (SDV) Z0FRAN IV PRN (17:00)
[2021-08-11] MEDS ORDERED: AZITHROMYCIN INJECTION 500 MG in NS (IVPB) 250 ML IV NR (17:00)
[2021-08-11] MEDS: cefTRIAXone 1 GM PRE-MIX 50 ML IV SCH (17:31)
[2021-08-11] MEDS: ENOXAPARIN 60 MG/0.6 ML (LOVENOX) SYR SC SCH (17:31)
[2021-08-11] MEDS: MAGNESIUM OXIDE (MAG-OX)400 MG TAB PO SCH (18:19)
[2021-08-11] MEDS: LACTOBACILLUS ACIDOPHILUS (PROBIOTIC) CAPSULE PO SCH (18:20)
[2021-08-11] MEDS: RT-ALBUTEROL/IPRATROPIUM 3 ML (DUONEB) VIAL INH SCH ×2 (19:17→23:18)
[2021-08-11 20:19] VITALS: BP 146/70
[2021-08-11] MEDS: buPROPion SR 150 MG (WELLBUTRIN SR) TAB PO SCH (20:21)
[2021-08-11] MEDS: amLODIPine 5 MG (NORVASC) TAB PO SCH (20:21)
[2021-08-11] MEDS: hydrALAZINE (APRESOLINE) 25 MG TAB PO SCH (21:37)
[2021-08-11 23:53] VITALS: BP 141/63
[2021-08-12] MEDS: RT-ALBUTEROL/IPRATROPIUM 3 ML (DUONEB) VIAL INH SCH ×6 (03:07→21:55)
[2021-08-12 04:19] VITALS: BP 151/79
[2021-08-12 05:31] LABS: HEMATOCRIT 40 % (35-52); HEMOGLOBIN 12.8 g/dL (11.5-16.0); MEAN CORPUSCULAR HEMOGLOBIN 28 pg (25-34); MEAN CORPUSCULAR HGB CONC 32 g/dL (32-36); MEAN CORPUSCULAR VOLUME 89 fL (80-99); MEAN PLATELET VOLUME 9.4 fL (9.0-12.2); PLATELET COUNT 286 10^3/uL (130-400); WHITE BLOOD COUNT 6.7 10^3/uL (4.3-11.0)
[2021-08-12] MEDS: hydrALAZINE (APRESOLINE) 25 MG TAB PO SCH ×3 (05:31→21:49)
[2021-08-12] MEDS: ENOXAPARIN 60 MG/0.6 ML (LOVENOX) SYR SC SCH ×2 (05:32→17:28)
[2021-08-12] MEDS: LEVOTHYROXINE 125 MCG (LEVOTHROID) TABLET PO SCH (05:34)
[2021-08-12 05:45] LABS: ALBUMIN 3.3 GM/DL (3.2-4.5)
[2021-08-12 05:47] LABS: CALCIUM 8.3 MG/DL (8.5-10.1)
[2021-08-12 05:48] LABS: TOTAL PROTEIN 6.8 GM/DL (6.4-8.2)
[2021-08-12 05:50] LABS: BILIRUBIN,TOTAL 0.3 MG/DL (0.1-1.0)
[2021-08-12 05:52] LABS: CREATININE SERUM 0.82 MG/DL (0.60-1.30)
[2021-08-12] MEDS ORDERED: KCL 20 MEQ TAB (K-DUR) PO SCH (07:00)
[2021-08-12 07:30] VITALS: BP 170/81
[2021-08-12] MEDS: PANTOPRAZOLE 40 MG (PROTONIX) VIAL IV SCH (08:28)
[2021-08-12] MEDS: cefTRIAXone 1 GM PRE-MIX 50 ML IV SCH (08:29)
[2021-08-12] MEDS: LACTOBACILLUS ACIDOPHILUS (PROBIOTIC) CAPSULE PO SCH ×3 (08:29→17:28)
[2021-08-12] MEDS: MAGNESIUM OXIDE (MAG-OX)400 MG TAB PO SCH ×2 (08:29→17:27)
[2021-08-12] MEDS: buPROPion SR 150 MG (WELLBUTRIN SR) TAB PO SCH ×2 (08:29→20:18)
[2021-08-12] MEDS ORDERED: TELMISARTAN 40 MG (MICARDIS) TAB PO SCH (09:00)
[2021-08-12] MEDS ORDERED: NEBIVOLOL 20 MG PO SCH (09:00)
[2021-08-12] MEDS: LOSARTAN 100 MG (COZAAR) TABLET PO SCH (09:57)
[2021-08-12] MEDS ORDERED: guaiFENesin (MUCINEX) 600 MG TAB PO NR (10:45)
[2021-08-12 12:02] VITALS: BP 150/74
[2021-08-12] MEDS ORDERED: TELM1TAB36 PO (14:53)
[2021-08-12] MEDS ORDERED: ACET-2267 PO (14:53)
[2021-08-12] MEDS ORDERED: ALBU18HF2 INH (14:53)
[2021-08-12] MEDS ORDERED: BUPR300T98 PO (14:53)
[2021-08-12] MEDS ORDERED: AMLO-251 PO (14:53)
[2021-08-12] MEDS ORDERED: NEBI20TA6 PO (14:53)
[2021-08-12] MEDS ORDERED: HYDR-3924 PO (14:53)
[2021-08-12] MEDS ORDERED: LEVO125T6 PO (14:53)
[2021-08-12] MEDS ORDERED: MAGN400T50 PO (14:53)
[2021-08-12] MEDS ORDERED: POTA-169 PO (14:53)
[2021-08-12 15:43] VITALS: BP 144/79
[2021-08-12] MEDS: KCL 20 MEQ TAB (K-DUR) PO SCH (17:28)
--- NOTE | 2021-08-12 18:13 | History & Physical ---
History of Present Illness History of Present Illness Reason for visit/HPI This is a 51 year old female who has post-influenza pneumonia who had been seen in my office and given rocephin and started on albuterol. She was seen for a recheck with ongoing and worsening symptoms with hypoxia. Her oxygen saturation dropped to the high 80s with exertion. Due to her worsening respiratory status, it was decided to directly admit her for further evaluation and treatment. Date of Admission August 11, 2021 at 16:18 Date Seen by a Provider: August 12, 2021 Time Seen by a Provider: 08:35 I consulted on this patient on 08/12/21 18:07 Attending Physician Aníbal Meyers DO Admitting Physician Aníbal Meyers DO Consult Allergies and Home Medications Allergies Coded Allergies: prednisone (Verified Allergy, Severe, Anaphylaxis, 08/11/21) Patient Home Medication List Home Medication List Reviewed: Yes Acetaminophen (Tylenol Extra Strength) 500 Mg Tablet, 1,000 MG PO Q8H PRN for P AIN-MILD (1-4), (Reported) Entered as Reported by: SINDY PEARSON on 08/12/211452 Last Action: Reviewed Albuterol Sulfate (Ventolin Hfa) 90 Mcg Hfa.aer.ad, 2 PUFF INH Q6H PRN for SHORTNESS OF BREATH, (Reported) Entered as Reported by: SINDY PEARSON on 08/12/211452 Last Action: Reviewed Amlodipine Besylate (Amlodipine Besylate) 10 Mg Tablet, 10 MG PO DAILY, (Reported) Entered as Reported by: SINDY PEARSON on 08/12/211452 Last Action: Reviewed Bupropion HCl (Bupropion Xl) 300 Mg Tab.er.24h, 300 MG PO HS, (Reported) Entered as Reported by: SINDY PEARSON on 08/12/211452 Last Action: Reviewed Hydralazine HCl (Hydralazine HCl) 50 Mg Tablet, 50 MG PO TID, (Reported) Entered as Reported by: SINDY PEARSON on 08/12/211452 Last Action: Reviewed Levothyroxine Sodium (Levothyroxine Sodium) 125 Mcg Tablet, 125 MCG PO DAILY, (Reported) Entered as Reported by: SINDY PEARSON on 08/12/211452 Last Action: Reviewed Magnesium Oxide (Magnesium Oxide) 400 Mg Magnesium Tablet, 400 MG PO DAILY, (Reported) Entered as Reported by: SINDY PEARSON on 08/12/211452 Last Action: Reviewed Nebivolol HCl (Nebivolol HCl) 20 Mg Tablet, 20 MG PO BID, (Reported) Entered as Reported by: SINDY PEARSON on 08/12/211452 Last Action: Reviewed Potassium Chloride (Klor-Con M20) 20 Meq Tab.er.prt, 60 MEQ PO TID, (Reported) Entered as Reported by: SINDY PEARSON on 08/12/211452 Last Action: Reviewed Telmisartan/Hydrochlorothiazid (Telmisartan-Hctz 80-12.5 mg Tb) 80 Mg-12.5 Mg Tablet, 1 EA PO DAILY, (Reported) Entered as Reported by: SINDY PEARSON on 08/12/211452 Last Action: Reviewed Discontinued Medications Amlodipine Besylate (Amlodipine Besylate) 5 Mg Tablet, 5 MG PO DAILY, (Reported) Discontinued Reason: No Longer Taking Entered as Reported by: JOHN PAUL LASSITER on 09/29/12 1351 Last Action: Discontinued Cyclobenzaprine HCl (Cyclobenzaprine HCl) 10 Mg Tablet, 10 MG PO Q8H PRN for SPASMS Discontinued Reason: No Longer Taking Prescribed by: CRISTINE LUQUE on 04/30/19 1610 Last Action: Discontinued Epinephrine (Epipen 2-Portillo) 0.3 Mg/0.3 Ml Auto.injct, 0.3 MG IJ NEEDED PRN for SHORTNESS OF BREATH Discontinued Reason: No Longer Taking Prescribed by: LIONEL STODDARD on 12/15/19 0923 Last Action: Discontinued Furosemide (Lasix Tab) 80 Mg Tablet, 80 MG PO DAILY, (Reported) Discontinued Reason: No Longer Taking Entered as Reported by: JENNIFER DEVINE on 06/07/13 1030 Last Action: Discontinued Hydrocodone Bit/Acetaminophen (Lortab 7.5 Mg Tablet) 1 Ea Tablet, 1-2 EA PO Q 4 - 6 HR PRN PRN for P Discontinued Reason: No Longer Taking Prescribed by: TILA AGOSTO on 06/13/13 1206 Last Action: Discontinued Ibuprofen (Motrin) 800 Mg Tab, 800 MG PO TID, (Reported) Discontinued Reason: No Longer Taking Entered as Reported by: JOHN PAUL LASSITER on 09/29/121350 Last Action: Discontinued Levothyroxine Sodium (Levothroid) 100 Mcg Tab, 100 MCG PO DAILY, (Reported) Discontinued Reason: No Longer Taking Entered as Reported by: JOHN PAUL LASSITER on 09/29/121350 Last Action: Discontinued Losartan Potassium (Losartan Potassium) 100 Mg Tablet, 100 MG PO DAILY, (Reporte d) Discontinued Reason: No Longer Taking Entered as Reported by: JENNIFER DEVINE on 09/29/12 1401 Last Action: Discontinued Methylprednisolone (Methylprednisolone Dose Pack) 4 Mg Tab.ds.pk, 4 MG PO UD Discontinued Reason: No Longer Taking Prescribed by: LIONEL STODDARD on 12/15/19 1031 Last Action: Discontinued Nebivolol Hcl (Bystolic) 10 Mg Tablet, 10 MG PO DAILY, (Reported) Discontinued Reason: No Longer Taking Entered as Reported by: JOHN PAUL LASSITER on 09/29/121350 Last Action: Discontinued Potassium Chloride (Klor-Con M20) 20 Meq Tab.prt.sr, 40 MEQ PO TID, (Reported) Discontinued Reason: No Longer Taking Entered as Reported by: JOHN PAUL LASSITER on 09/29/121350 Last Action: Discontinued Past Vniuvxt-Cqmswx-Kaarcy Hx Patient Social History Tobacco Use?: No Substance use?: No Alcohol Use?: No Pt feels they are or have been: No Immunizations Up To Date First/Initial COVID19 Vaccinat: June 2020 Second COVID19 Vaccination Dylan: July 2020 Hepatitis B: No PED Vaccines UTD: No Seasonal Allergies Seasonal Allergies: No Current Status status: No status: No Advance Directives: No Communicates: Verbally Primary Language: Montenegrin Preferred Spoken Language: Montenegrin Is interpretation needed?: No Implanted or Applied Medical D: None Past Medical History Surgeries: Section, Hysterectomy, Orthopedic, Tubal Ligation Sleep Apnea Currently Using CPAP: No Currently Using BIPAP: No Hypertension TECHNICAL ARCHITECT History: Hysterectomy, Tubal Ligation Arthritis Hypothyroidsim Blood Disorders: No Family Medical History No Pertinent Family Hx Review of Systems Constitutional: fever, weakness EENTM: No see HPI, No no symptoms reported, No ear discharge, No hearing loss, No ear pain, No blurred vision, No double vision, No eye pain, No tearing, No vision loss, No dental problems, No hoarseness, No mouth pain, No mouth swelling, No epistaxis, No nose congestion, No nose pain, No throat pain, No th roat swelling, No other Respiratory: cough, dyspnea on exertion, short of breath, wheezing Cardiovascular: edema Gastrointestinal: No RUQ, No LUQ, No RLQ, No LLQ, No no symptoms reported, No see HPI, No abdominal pain, No constipation, No diarrhea, No dysphagia, No hematemesis, No heartburn, No jaundice, No loss of appetite, No melena, No nausea, No vomiting, No other Genitourinary: No no symptoms reported, No see HPI, No decreased output, No discharge, No dysuria, No frequency, No hematuria, No hesitancy, No incontinence, No nocturia, No pain, No other Musculoskeletal: joint pain (knees) Psychiatric/Neurological: Anxiety Physical Exam Vital Signs Vital Signs - First Documented 08/11/21 08/11/21 08/11/21 08/11/21 18:33 19:18 20:19 23:18 Temp 37.6 Pulse 88 Resp 18 B/P (MAP) 146/70 (95) Pulse Ox 91 O2 Delivery Room Air O2 Flow Rate 1.00 FiO2 90 Capillary Refill : Height, Weight, BMI Height: 5'3.00" Weight: 345lbs. oz. 156.269023yd; 58.63 BMI Method:Stated General Appearance: Moderate Distress HEENT: Other (turbinates edematous) Neck: Supple Respiratory: Decreased Breath Sounds, Wheezing Cardiovascular: Regular Rate, Rhythm, Systolic Murmur Gastrointestinal: Normal Bowel Sounds, Non Tender, Soft Rectal: Deferred Back: No CVA Tenderness Extremity: Non Tender, No Calf Tenderness, Pedal Edema Neurologic/Psychiatric: Alert Skin: Warm/Dry Comments Laboratory Tests 08/12/21 05:15: White Blood Count 6.7, Red Blood Count 4.53, Hemoglobin 12.8, Hematocrit 40, Mean Corpuscular Volume 89, Mean Corpuscular Hemoglobin 28, Mean Corpuscular Hemoglobin Concent 32, Red Cell Distribution Width 14.6H, Platelet Count 286, Mean Platelet Volume 9.4, Sodium Level 141, Potassium Level 3.0L, Chloride Level 99, Carbon Dioxide Level 30, Anion Gap 12, Blood Urea Nitrogen 8, Creatinine 0.82, Estimat Glomerular Filtration Rate 88, BUN/Creatinine Ratio 10, Glucose Level 142H, Calcium Level 8.3L, Corrected Calcium 8.9, Total Bilirubin 0.3, Aspartate Amino Transf (AST/SGOT) 15, Alanine Aminotransferase (ALT/SGPT) 16, Alkaline Phosphatase 53, Total Protein 6.8, Albumin 3.3 Assessment/Plan Assessment and Plan 1. Acute Post-Influenza Pneumonia--admit and start rocephin and zithromax 2. Acute Respiratory Distress with Hypoxia--admit on oxygen via NC, SVNs with duoneb and IV decadron 3. Labile Hypertension--resume home meds 4. REBECCA--will use home CPAP 5. Hypokalemia--replace potassium and monitor Admission Diagnosis Admission Status: Inpatient Order (span 2 midnights) Reason for Inpatient Admission: Will need at least 48hrs of IV abx ANÍBAL MEYERS DO August 12, 2021 18:13
[2021-08-12] MEDS ORDERED: ACETAMINOPHEN 325 MG TABLET PO PRN (18:15)
[2021-08-12] MEDS ORDERED: TEMAZEPAM 15 MG (RESTORIL) CAP PO PRN (18:15)
[2021-08-12 20:00] VITALS: BP 150/84
[2021-08-12] MEDS: guaiFENesin (MUCINEX) 600 MG TAB PO SCH (20:18)
[2021-08-12] MEDS: amLODIPine 5 MG (NORVASC) TAB PO SCH (20:19)
[2021-08-13 00:13] VITALS: BP 165/79
[2021-08-13] MEDS: RT-ALBUTEROL/IPRATROPIUM 3 ML (DUONEB) VIAL INH SCH ×6 (02:08→21:51)
[2021-08-13 04:02] VITALS: BP 167/87
[2021-08-13] MEDS: ENOXAPARIN 60 MG/0.6 ML (LOVENOX) SYR SC SCH ×2 (05:44→17:44)
[2021-08-13] MEDS: hydrALAZINE (APRESOLINE) 25 MG TAB PO SCH ×3 (05:44→21:36)
[2021-08-13] MEDS: LEVOTHYROXINE 125 MCG (LEVOTHROID) TABLET PO SCH (05:44)
[2021-08-13 06:38] LABS: POTASSIUM 3.8 MMOL/L (3.6-5.0)
[2021-08-13 06:39] LABS: CALCIUM 9.1 MG/DL (8.5-10.1)
[2021-08-13 06:44] LABS: CREATININE SERUM 0.89 MG/DL (0.60-1.30)
[2021-08-13 08:08] VITALS: BP 136/61
[2021-08-13] MEDS: guaiFENesin (MUCINEX) 600 MG TAB PO SCH ×2 (08:36→21:35)
[2021-08-13] MEDS: MAGNESIUM OXIDE (MAG-OX)400 MG TAB PO SCH ×2 (08:36→17:35)
[2021-08-13] MEDS: LACTOBACILLUS ACIDOPHILUS (PROBIOTIC) CAPSULE PO SCH ×3 (08:36→17:35)
[2021-08-13] MEDS: buPROPion SR 150 MG (WELLBUTRIN SR) TAB PO SCH ×2 (08:36→21:35)
[2021-08-13] MEDS: LOSARTAN 100 MG (COZAAR) TABLET PO SCH (08:36)
[2021-08-13] MEDS: KCL 20 MEQ TAB (K-DUR) PO SCH ×2 (08:37→17:35)
[2021-08-13] MEDS: cefTRIAXone 1 GM PRE-MIX 50 ML IV SCH (09:08)
[2021-08-13] MEDS: PANTOPRAZOLE 40 MG (PROTONIX) VIAL IV SCH (09:08)
[2021-08-13 12:00] VITALS: BP 196/96
--- NOTE | 2021-08-13 13:24 | Diagnostic Imaging Report ---
INDICATION: Pneumonia follow-up. COMPARISON: 08/11/2021 FINDINGS: Frontal and lateral radiographic views of the chest were obtained and show persistent, but improved diffuse patchy airspace opacities throughout the right lung. There is no large effusion nor pneumothorax. Cardiac silhouette and pulmonary vasculature stable. Osseous structures show no gross acute abnormalities. IMPRESSION: 1. Persistent, but improved diffuse patchy pneumonia type opacities in the right lung. Dictated by: Dictated on workstation # [id number]
[2021-08-13 15:15] VITALS: BP 175/102
[2021-08-13] MEDS ORDERED: cloNIDine 0.1 MG (CATAPRES) TAB PO NR (16:00)
[2021-08-13] MEDS: amLODIPine 5 MG (NORVASC) TAB PO SCH (17:25)
[2021-08-13] MEDS ORDERED: amLODIPine 10 MG (NORVASC) TAB PO NR (17:30)
[2021-08-13] MEDS ORDERED: cloNIDine 0.1 MG (CATAPRES) TAB PO PRN (17:45)
--- NOTE | 2021-08-13 17:52 | Progress Note ---
Subjective Date Seen by a Provider: August 13, 2021 Time Seen by a Provider: 12:30 Subjective/Events-last exam Fwup pneumonia, acute respiratory distess, hypoxia, labile hypertension. Still requiring 3-4 liters of oxygen and still feels tight in left lung. Objective Exam Vital Signs Date Time Temp Pulse Resp B/P (MAP) Pulse Ox O2 Delivery O2 Flow Rate FiO2 08/13/21 15:15 36.2 66 18 175/102 (126) 92 Nasal Cannula 4.00 08/13/21 14:52 97 Nasal Cannula 3.00 08/13/21 12:00 36.5 67 18 196/96 (129) 92 Nasal Cannula 4.00 08/13/21 10:26 Nasal Cannula 3.00 08/13/21 10:21 98 Nasal Cannula 4.00 08/13/21 08:45 95 Nasal Cannula 3.00 08/13/21 08:08 36.4 71 20 136/61 (86) 95 Nasal Cannula 4.00 08/13/21 07:23 92 Room Air 0.00 08/13/21 04:02 36.5 55 20 167/87 (113) 91 Nasal Cannula 4.00 08/13/21 02:09 95 Nasal Cannula 4.00 08/13/21 00:13 36.8 71 20 165/79 (107) 93 Nasal Cannula 4.00 08/12/21 21:55 96 Nasal Cannula 3.00 08/12/21 20:00 Nasal Cannula 2.00 08/12/21 20:00 36.7 73 18 150/84 (106) 96 Nasal Cannula 4.00 08/12/21 18:32 92 Room Air I & O 08/13/21 07:00 Intake Total 1588 ml Output Total 1850 ml Balance -262 ml Capillary Refill : General Appearance: No Apparent Distress Respiratory: Lungs Clear, Decreased Breath Sounds Cardiovascular: Regular Rate, Rhythm Gastrointestinal: non tender, soft Extremity: Non Tender, No Calf Tenderness, No Pedal Edema Neurologic/Psychiatric: Alert, Oriented x3 Results Lab Laboratory Tests 08/13/21 06:13: Sodium Level 138, Potassium Level 3.8, Chloride Level 99, Carbon Dioxide Level 27, Anion Gap 12, Blood Urea Nitrogen 15, Creatinine 0.89, Estimat Glomerular Filtration Rate 79, BUN/Creatinine Ratio 17, Glucose Level 122H, Calcium Level 9.1 Assessment/Plan Assessment/Plan Assess & Plan/Chief Complaint 1. Post-Influenza Secondary Pneumonia--continue Rocephin and Zithromax, repeat CXR, Add acapella 2. Respiratory Distress with Hypoxia--still requiring oxygen at 3-4liters NC, no further wheezing so will change dexamethasone to oral and add acapella 3. Labile Hypertension--BP has been stable 4. REBECCA--on home CPAP Clinical Quality Measures Admission Status Admission Dx 1. Acute Post-Influenza Pneumonia--admit and start rocephin and zithromax 2. Acute Respiratory Distress with Hypoxia--admit on oxygen via NC, SVNs with duoneb and IV decadron 3. Labile Hypertension--resume home meds 4. REBECCA--will use home CPAP 5. Hypokalemia--replace potassium and monitor ANÍBAL SAMUEL DO August 13, 2021 17:52
[2021-08-13 19:36] VITALS: BP 171/94
[2021-08-14] VITALS: BP 149/84
[2021-08-14] MEDS: RT-ALBUTEROL/IPRATROPIUM 3 ML (DUONEB) VIAL INH SCH ×3 (02:30→11:03)
[2021-08-14 04:00] VITALS: BP 157/96
[2021-08-14] MEDS: ENOXAPARIN 60 MG/0.6 ML (LOVENOX) SYR SC SCH (06:05)
[2021-08-14] MEDS: hydrALAZINE (APRESOLINE) 25 MG TAB PO SCH (06:06)
[2021-08-14] MEDS: LEVOTHYROXINE 125 MCG (LEVOTHROID) TABLET PO SCH (06:06)
[2021-08-14 08:00] VITALS: BP 149/82
[2021-08-14] MEDS: KCL 20 MEQ TAB (K-DUR) PO SCH (08:18)
[2021-08-14] MEDS: LACTOBACILLUS ACIDOPHILUS (PROBIOTIC) CAPSULE PO SCH (08:18)
[2021-08-14] MEDS: buPROPion SR 150 MG (WELLBUTRIN SR) TAB PO SCH (08:18)
[2021-08-14] MEDS: guaiFENesin (MUCINEX) 600 MG TAB PO SCH (08:18)
[2021-08-14] MEDS: LOSARTAN 100 MG (COZAAR) TABLET PO SCH (08:18)
[2021-08-14] MEDS: cefTRIAXone 1 GM PRE-MIX 50 ML IV SCH (08:18)
[2021-08-14] MEDS: MAGNESIUM OXIDE (MAG-OX)400 MG TAB PO SCH (08:18)
[2021-08-14] MEDS: PANTOPRAZOLE 40 MG (PROTONIX) VIAL IV SCH (08:18)
[2021-08-14 09:11] VITALS: BP 149/82
[2021-08-14] MEDS ORDERED: IPRA3AMP31 INH (09:42)
[2021-08-14] MEDS ORDERED: CEFD300C3 PO (09:42)
[2021-08-14] MEDS ORDERED: AZIT250T PO ×2 (09:42→09:48)
[2021-08-14] MEDS ORDERED: DEXA2TAB PO (09:45)
--- NOTE | 2021-08-14 09:56 | Discharge Summary ---
Diagnosis/Chief Complaint Date of Admission August 11, 2021 at 16:18 Date of Discharge Discharge Date: August 14, 2021 Discharge Diagnosis 1. Post-Influenza A Pneumonia--improving 2. Acute Respiratory Distress with Hypoxia--improving--oxygen saturation 95% on RA this morning 3. Labile Hypertension--improved this morning 4. REBECCA--using CPAP routinely 5. Depression--continue Wellbutrin Reason Hospital Visit This is a 51 year old female who has post-influenza pneumonia who had been seen in my office and given rocephin and started on albuterol. She was seen for a recheck with ongoing and worsening symptoms with hypoxia. Her oxygen saturation dropped to the high 80s with exertion. Due to her worsening respiratory status, it was decided to directly admit her for further evaluation and treatment. Discharge Summary Hospital Course Was the Problem List Reviewed?: Yes Hospital Course This is a 51 year old female who has post-influenza pneumonia who had been seen in my office and given rocephin and started on albuterol. She was seen for a recheck with ongoing and worsening symptoms with hypoxia. Her oxygen saturation dropped to the high 80s with exertion. Due to her worsening respiratory status, it was decided to directly admit her for further evaluation and treatment. She was admitted to the medical floor and started on rocephin, IV dexamethasone and nebulizer treatments with duoneb. She also was on oxygen continuously at 3-4 liters via NC. She used her home CPAP with oxygen titrated in. The first 2 days her BP was fairly stable but then she had a spike of her BP the day prior to discharge. She was given doses of clonidine and her IV dexamethasone was stopped. Her blood pressure on the morning of discharge is much improved. She is also off of oxygen and her O2 sat is 95% on room air on the morning of discharge. Repeat CXR showed improving infiltrate. She is afebrile. Acapella was added and patient feels this is helping. She will be discharged home on o ral cefdinir, zithromax and dexamethasone and will continue SVNS with duoneb q4hrs prn. She will also continue acapella. She will follow up with me in my office in 1 week. Labs Laboratory Tests 08/12/21 05:15: Red Cell Distribution Width 14.6H, Potassium Level 3.0L, Glucose Level 142H, Calcium Level 8.3L 08/13/21 06:13: Glucose Level 122H Procedures None. Discharge Physical Examination Allergies: Coded Allergies: prednisone (Verified Allergy, Severe, Anaphylaxis, 08/11/21) Vitals & I&Os Vital Signs Date Time Temp Pulse Resp B/P (MAP) Pulse Ox O2 Delivery O2 Flow Rate FiO2 08/14/21 09:11 36.3 71 18 149/82 (104) 95 Room Air 08/14/21 07:14 2.00 08/12/21 15:27 90 General Appearance: Alert, Oriented X3, Cooperative, No Acute Distress Respiratory: Clear to Auscultation Cardiovascular: Regular Rate Extremities: No Clubbing, No Cyanosis, No Edema Psych/Mental Status: Mental Status NL, Mood NL Discharge Home Medications Reviewed and agree with Discharge Medication list on patient's Discharge Instruction sheet Instructions to Patient/Family Please see electronic discharge instructions given to patient. ANÍBAL SAMUEL DO August 14, 2021 09:56
[2021-08-14] MEDS ORDERED: GUAI400T86 PO (09:57)
[2021-08-14] MEDS ORDERED: LACT1CAP7 PO (09:58)
[2021-08-14] MEDS ORDERED: AZITHROMYCIN INJECTION 500 MG in NS (IVPB) 250 ML IV NR (10:04)
[2021-08-14 12:06] VITALS: BP 139/80
== END 2021-08-14 12:00 | disposition home or self-care (01) ==
LOC: 4TH 16:18
PROVIDERS: ADMIT Family Medicine; ATTEND Family Medicine
DX: J11.00 Influenza due to unidentified influenza virus with unspecified type of pneumonia (principal); R06.03 Acute respiratory distress; G47.33 Obstructive sleep apnea (adult) (pediatric); F32.A Depression, unspecified; I10 Essential (primary) hypertension
CPT/HCPCS: 36415; 71046; 80048; 80053; 85027; 94640; 94760; 96365; 96372; 96374; 96375; 96376

== ENCOUNTER → 2021-08-11 | Outpatient (CLI) | payer BC ==
[~2021-08-11] MED LIST changes: +ACET-2267 PO; +ALBU18HF2 INH; +AMLO-251 PO; +AZIT250T PO; +BUPR300T98 PO; -CATHETER FLUSH 10 ML SYR IV PRN; +CEFD300C3 PO; +CYCL10TA25 PO; -CYCL10TA9 PO; +DEXA2TAB PO; +GUAI400T86 PO; -HOLD METFORMIN - RECEIVED CONTRAST 20 ML VIAL IV SCH; +HYDR-3924 PO; -IOHEXOL 350 MG/ML 100 ML (OMNIPAQUE 350) VIAL IV ONE; +IPRA3AMP31 INH; +LACT1CAP7 PO; +LEVO125T6 PO; +MAGN400T50 PO; +NEBI20TA6 PO; -NS 100 ML (IVPB) BAG IV ONE; +POTA-169 PO; +TELM1TAB36 PO
--- NOTE | 2021-08-11 11:12 | Diagnostic Imaging Report ---
Indication: Shortness of breath COMPARISON: 12/15/2019 TECHNIQUE: 2 radiographs of the chest dated 08/11/2021 FINDINGS: The cardiac silhouette is mildly enlarged. No significant pulmonary vascular congestion. Extensive mixed interstitial and airspace opacities are identified throughout the right lung. The left lung is clear of focal pulmonary opacity. No significant pleural effusion. No pneumothorax. Scattered osseous degenerative changes without acute osseous abnormality. IMPRESSION: Infiltrate throughout the right lung is concerning for an underlying infectious etiology. Radiographic follow-up in 10-14 days after appropriate therapy is recommended to ensure clearance. Dictated by: Dictated on workstation # [id number]
== END ==
LOC: RAD 10:26
PROVIDERS: ATTEND Family Medicine
DX: R91.8 Other nonspecific abnormal finding of lung field (principal); R06.02 Shortness of breath
CPT/HCPCS: 71046

== ENCOUNTER → 2022-02-12 | Outpatient (CLI) | payer BC ==
[~2022-02-12] MED LIST changes: +ACET-2267 PO; +ALBU18HF2 INH; +AMLO-251 PO; +AZIT250T PO; +BUPR300T98 PO; +CEFD300C3 PO; +DEXA2TAB PO; +GUAI400T86 PO; +HYDR-3924 PO; +IPRA3AMP31 INH; +LACT1CAP7 PO; +LEVO125T6 PO; +MAGN400T50 PO; +NEBI20TA6 PO; +POTA-169 PO; +TELM1TAB36 PO
--- NOTE | 2022-02-12 11:37 | Diagnostic Imaging Report ---
EXAMINATION: Left hip unilateral 2 or 3 views (w/pelvis when done) HISTORY: Left hip pain times one week. EXAMINATION: Left hip, 02/12/2022. FINDINGS: 2 views of the hip There is moderate narrowing and spurring with subchondral sclerosis about the joint space. No fractures or dislocations. IMPRESSION: 1. Degenerative findings with no acute osseous abnormality. Dictated by: Dictated on workstation # [id number]
== END ==
LOC: RAD 10:23
PROVIDERS: ATTEND Family Medicine
DX: M16.12 Unilateral primary osteoarthritis, left hip (principal)
CPT/HCPCS: 73502